=== PATIENT | male | born 1935 | race Caucasian/White ===

== ENCOUNTER 2016-07-23 11:22 | Emergency (ER) | payer MEDICARE, OTHER ==
[2016-07-23 11:58] LABS: BASOPHILS 0.2 % (0-2); EOSINOPHILS 0.8 % (0-7); HEMATOCRIT 44.8 % (42.0-54.0); HEMOGLOBIN 14.8 g/dL (13.5-17.5); IMMATURE GRANULOCYTES 0.1 % (0-5); LYMPHOCYTES 12.3 % (15-50); MEAN PLATELET VOLUME 9.4 fL (7.4-10.4); MONOCYTES 7.4 % (2-11); NEUTROPHILS 79.2 % (40-80); PLATELET COUNT 294 10x3/uL (130-400); RBC 4.62 10x6/uL (4.20-6.10); RDW 12.4 % (11.5-14.5); WBC 10.6 10x3/uL (4.8-10.8)
[2016-07-23 12:18] LABS: ALBUMIN 3.1 g/dL (3.4-5.0); ALKALINE PHOSPHATASE 337 U/L (46-116); ALT (SGPT) 23 U/L (10-68); BILIRUBIN - TOTAL 0.43 mg/dL (0.2-1.3); CALC OSMOLALITY 288 mosm/kg (275-300); CALCIUM 9.1 mg/dL (8.5-10.1); CARBON DIOXIDE 27.8 mmol/L (21.0-32.0); CHLORIDE - SERUM 103 mmol/L (98-107); GLUCOSE 136 mg/dL (74-106); POTASSIUM - SERUM 3.8 mmol/L (3.5-5.1); PROTEIN - SERUM 7.2 g/dL (6.4-8.2); SODIUM 141 mmol/L (136-145); UREA NITROGEN 30 mg/dL (7-18); eGFR NON AFRICAN AMERICAN 76 mL/min (90-120)
[2016-07-23 12:19] LABS: TROPONIN-I < 0.017 ng/mL (0.000-0.060)
== END 2016-07-23 18:20 | disposition home or self-care (01) ==
LOC: D.ER 11:22
PROVIDERS: Emergency Medicine
DX: R55 Syncope and collapse (principal); E86.0 Dehydration; I10 Essential (primary) hypertension; C61 Malignant neoplasm of prostate; I44.0 Atrioventricular block, first degree; I45.10 Unspecified right bundle-branch block

== ENCOUNTER → 2016-08-17 15:04 | Outpatient (CLI) | payer MEDICARE, OTHER | END | disposition home or self-care (01) | LOC: D.US 15:04 | DX: R60.0 Localized edema (principal) ==